=== PATIENT | female | born 1985 | race Caucasian/White ===

== ENCOUNTER 2023-08-01 16:54 | Emergency (ER) | payer MEDICAID ==
[~2023-08-01] VITALS: Ht 160 cm; Wt 56.7 kg
[~2023-08-01 16:54] MED LIST: ADVIL200 MG; ANAPROX DS550 MG PO; CIPROFLOXACIN500 MG PO; FLEXERIL5 MG PO; Fioricet 325 MG1 TAB PO; MACROBID100 M1 PO; MOTRIN800 MG PO; Miralax Powder255 GM PO; NKHM; PHENERGAN25 M1 PO; PONSTEL250 MG PO; TRIMOX500 MG PO; VIBRAMYCIN100 MG PO; VICODIN 5/500 505 MG PO; ZOFRAN4 MG PO
== END 2023-08-01 21:12 | disposition left against medical advice (07) ==
LOC: ED 16:54
DX: M54.9 Dorsalgia, unspecified (principal); R09.81 Nasal congestion; R05.9 Cough, unspecified; Z53.21 Procedure and treatment not carried out due to patient leaving prior to being seen by health care provider

== ENCOUNTER → 2023-10-20 | Day surgery (SDC) | payer OTHER ==
[~2023-10-20] VITALS: Ht 160 cm; Wt 58.1 kg
[~2023-10-20] MED LIST changes: +PROPRANOLOL ER80 MG PO
[2023-10-20 07:41] VITALS: BP 105/81
[2023-10-20 08:12] VITALS: BP 94/52
[2023-10-20 08:28] VITALS: BP 99/68
[2023-10-20 08:42] VITALS: BP 94/52
== END | disposition home or self-care (01) ==
LOC: SDC 10-17 08:00
PROVIDERS: ATTEND Surgery
DX: L98.9 Disorder of the skin and subcutaneous tissue, unspecified (principal); C44.319 Basal cell carcinoma of skin of other parts of face; F17.210 Nicotine dependence, cigarettes, uncomplicated; G43.909 Migraine, unspecified, not intractable, without status migrainosus; R22.9 Localized swelling, mass and lump, unspecified; Z79.899 Other long term (current) drug therapy

== ENCOUNTER 2024-03-29 17:20 | Emergency (ER) | payer OTHER ==
[~2024-03-29] VITALS: Wt 54.9 kg
[2024-03-29] MEDS ORDERED: Bacitracin Zinc 14 GM TUBE T ONE (17:35)
== END 2024-03-29 18:18 | disposition home or self-care (01) ==
LOC: ED 17:20
DX: S81.811A Laceration without foreign body, right lower leg, initial encounter (principal); G43.909 Migraine, unspecified, not intractable, without status migrainosus; Z88.2 Allergy status to sulfonamides; Z88.8 Allergy status to other drugs, medicaments and biological substances; Z98.890 Other specified postprocedural states; Z98.51 Tubal ligation status; W01.190A Fall on same level from slipping, tripping and stumbling with subsequent striking against furniture, initial encounter; Y93.89 Activity, other specified; Y92.89 Other specified places as the place of occurrence of the external cause; Y99.8 Other external cause status

== ENCOUNTER 2024-06-27 21:30 | Observation (INO) | payer OTHER ==
[~2024-06-27] VITALS: Ht 160 cm; Wt 59.0 kg
[2024-06-27 21:39] VITALS: BP 106/64
[2024-06-27 22:33] LABS: BASO # 0.1 10*3/uL (0.0-0.1); EOS # 0.2 10*3/uL (0.0-0.4); EOS % 2.6 % (1.0-4.0); HEMATOCRIT 38.9 % (37.0-47.0); LYMPH # 3.3 10*3/uL (1.3-4.4); MEAN CELL VOLUME 93.7 fl (81.0-99.0); MEAN CORPUSCULAR HGB 30.8 pg (27.0-31.0); MEAN CORPUSCULAR HGB CONC 32.9 g/dl (33.0-37.0); MEAN PLATELET VOLUME 9.9 fl (9.6-12.3); MONO # 1.1 10*3/uL (0.1-1.0); MONO % 11.9 % (3.0-9.0); NEUT # 4.3 10*3/uL (2.3-7.9); NEUT % 47.4 % (47.0-73.0); PLATELET COUNT AUTOMATED 263 10*3/uL (130-400); RED BLOOD COUNT 4.15 10*6/uL (4.10-5.10); RED CELL DISTRI WIDTH 12.8 % (0-14.5)
[2024-06-27 22:59] LABS: ALKALINE PHOSPHATASE 79 U/L (46-116); CHLORIDE 104 mmol/L (98-107); SGPT/ALT 11 U/L (5-49); TOTAL PROTEIN 6.8 gm/dL (6.0-8.0)
[2024-06-27 23:01] LABS: BUN < 5 mg/dl (9-23)
[2024-06-27] MEDS ORDERED: POTASSIUM CHLORIDE 20 MEQ TAB PO ONE (23:40)
[2024-06-28 01:48] VITALS: BP 119/55
[2024-06-28] MEDS ORDERED: Ondansetron Hydrochloride 4 MG/2 ML VIAL IV PRN (02:00)
[2024-06-28] MEDS ORDERED: MORPHINE Sulfate 2 MG/ML SYR IV PRN (02:00)
[2024-06-28] MEDS ORDERED: ACETAMINOPHEN 325 MG TAB PO PRN (02:00)
[2024-06-28] MEDS ORDERED: ACETAMINOPHEN 650 MG SUPP R PRN (02:00)
[2024-06-28 04:44] VITALS: BP 104/59
[2024-06-28 04:47] LABS: BASO # 0.1 10*3/uL (0.0-0.1); EOS # 0.4 10*3/uL (0.0-0.4); EOS % 4.4 % (1.0-4.0); HEMATOCRIT 41.3 % (37.0-47.0); LYMPH # 3.8 10*3/uL (1.3-4.4); LYMPH % 42.9 % (27.0-41.0); MEAN CELL VOLUME 93.7 fl (81.0-99.0); MEAN CORPUSCULAR HGB 30.6 pg (27.0-31.0); MEAN CORPUSCULAR HGB CONC 32.7 g/dl (33.0-37.0); MEAN PLATELET VOLUME 10.3 fl (9.6-12.3); MONO # 1.1 10*3/uL (0.1-1.0); MONO % 12.3 % (3.0-9.0); NEUT # 3.4 10*3/uL (2.3-7.9); NEUT % 39.2 % (47.0-73.0); PLATELET COUNT AUTOMATED 285 10*3/uL (130-400); RED BLOOD COUNT 4.41 10*6/uL (4.10-5.10); RED CELL DISTRI WIDTH 12.9 % (0-14.5); WHITE BLOOD COUNT 8.8 10*3/uL (4.8-10.8)
[2024-06-28 05:05] LABS: CHLORIDE 106 mmol/L (98-107); CHOLESTEROL 110 mg/dL (<200); LDL CHOLESTEROL 58 mg/dL (9-159); POTASSIUM 3.7 mmol/L (3.4-5.1); TRIGLYCERIDES 76 mg/dl (<150)
[2024-06-28 05:13] LABS: BUN < 5 mg/dl (9-23)
[2024-06-28] MEDS ORDERED: Regadenoson 0.4 MG/5 ML SYR IV ONE (06:37)
[2024-06-28] MEDS ORDERED: Technetium Tc 99M Tetrofosmi 0.23 MG KIT IJ SCH (07:25)
[2024-06-28 09:50] VITALS: BP 114/69
[2024-06-28] MEDS ORDERED: Nicotine 21 MG PATCH T SCH (10:00)
[2024-06-28] MEDS ORDERED: Enoxaparin Sodium 40 MG/0.4 ML SYR SC SCH (10:00)
[2024-06-28] MEDS ORDERED: ATORVASTATIN CALCIUM 80 MG TAB PO SCH (22:00)
[2024-06-28] MEDS ORDERED: Metoprolol Tartrate 25 MG TAB PO SCH (22:00)
[2024-06-29] MEDS ORDERED: ASPIRIN ENTERIC COATED 81 MG TAB PO SCH (10:00)
== END 2024-06-28 13:39 | disposition home or self-care (01) ==
LOC: ED 21:30 → EDHOLD 06-28 01:30
PROVIDERS: Emergency Medicine; Internal Medicine; ADMIT Student in an Organized Health Care Education/Training Program; ATTEND Student in an Organized Health Care Education/Training Program
DX: R07.89 Other chest pain (principal); Z79.899 Other long term (current) drug therapy; E87.6 Hypokalemia; E87.1 Hypo-osmolality and hyponatremia; R73.9 Hyperglycemia, unspecified; I95.89 Other hypotension; M94.0 Chondrocostal junction syndrome [Tietze]; Z20.822 Contact with and (suspected) exposure to COVID-19